=== PATIENT | female | born 1970 | race American Indian/Alaskan Native ===

== ENCOUNTER 2017-05-09 08:22 | Outpatient (CLI) | payer BC ==
[2017-05-09] MEDS ORDERED: NACL ONE (09:21)
--- NOTE | 2017-05-09 10:34 | Cat Scan Report ---
CTA CHEST INDICATION: Chest pain. COMPARISON: None similar at this institution. FINDINGS: Chest CTA performed following intravenous administration of 100 cc of Omnipaque 350. Rotational MIP's also obtained. Slight cardiomegaly. No aortic aneurysm or dissection. No suspicious pulmonary arterial filling defects. Patent central airway. Slight nonspecific right hilar lymph node prominence as on axial image 112, series 2. No other size significant adenopathy. Normal thyroid size with an indeterminate 3 mm hypodensity on the right. Mild lingular scarring. Nonspecific distal esophageal wall prominence/thickening, not excluded for gastroesophageal reflux and/or hiatal hernia, amongst others. Diffuse fatty hepatic infiltration. Slight thoracic spine degenerative spurring. CONCLUSION: No acute chest process or CT evidence of pulmonary embolism with slight cardiomegaly, distal esophageal thickening and fatty liver, amongst others, as above. Please correlate. Thank you for the opportunity to participate in this patient's care.
== END 2017-05-09 08:23 | disposition home or self-care (01) ==
LOC: CT 08:22
PROVIDERS: ATTEND Internal Medicine Cardiovascular Disease
DX: I51.7 Cardiomegaly (principal); K76.0 Fatty (change of) liver, not elsewhere classified; J98.4 Other disorders of lung; M53.84 Other specified dorsopathies, thoracic region
CPT/HCPCS: 71275; Q9967